=== PATIENT | female | born 1980 | race American Indian/Alaskan Native ===

== ENCOUNTER 2019-04-02 06:16 | Inpatient (IN) | payer MEDICAID ==
--- NOTE | 2019-03-29 15:43 | Anesthesia Consultation ---
Anesthesia Consult and Med Hx Date of service: 04/02/19 - Airway Anesthetic Teeth Evaluation: Good ROM Head & Neck: Adequate Mental/Hyoid Distance: Adequate Mallampati Class: Class III Intubation Access Assessment: Possibly Difficult - Pulmonary Exam CTA: Yes - Cardiac Exam Cardiac Exam: No Murmur - Pre-Operative Health Status ASA Pre-Surgery Classification: ASA3 Proposed Anesthetic Plan: General - Pulmonary Hx Sleep Apnea: Yes (CPAP) - Central Nervous System Hx Psychiatric Problems: No - Other Systems Hx Alcohol Use: Yes (Occas) Hx Cancer: No Hx Obesity: Yes - Additional Comments Anesthesia Medical History Comments: PT Denies HTN, DM states meds ( metformin spironalactone) are for PCOS and she has not taken any mes for a week including Phentermine.
[~2019-04-02 06:16] MED LIST: LACTATED RINGERS 1,000 ML IV SCH
[2019-04-02] MEDS ORDERED: NACL BACTERIOSTATIC INFILTRATI ONE (06:18)
[2019-04-02] MEDS ORDERED: XYLOCAINE 1% 20 mL ONE (06:47)
[2019-04-02] MEDS ORDERED: MARCAINE-EPI 0.5%-1:200,000 INFILTRATI ONE ×2 (06:47→08:29)
--- NOTE | 2019-04-02 07:13 | Anesthesia Day of Surgery ---
Anesthesia Day of Surgery - Day of Surgery Patient Examined: Yes Patient H&P Reviewed: Yes Patient is NPO: Yes
[2019-04-02] MEDS ORDERED: ZOFRAN IV PRN (07:28)
[2019-04-02] MEDS ORDERED: REGLAN IV PRN (07:28)
[2019-04-02] MEDS ORDERED: APRESOLINE IV PRN (07:28)
[2019-04-02] MEDS ORDERED: NORCO PO PRN (07:28)
[2019-04-02] MEDS ORDERED: SUBLIMAZE IV PRN (07:30)
[2019-04-02] MEDS ORDERED: ZOFRAN ONE (07:30)
[2019-04-02] MEDS ORDERED: DIPRIVAN 10 MG/ML IV ONE (07:30)
[2019-04-02] MEDS ORDERED: SUBLIMAZE ONE (07:30)
[2019-04-02] MEDS ORDERED: TRANSDERM-SCOP TD SCH (08:00)
[2019-04-02] MEDS ORDERED: ANCEF/STERILE WATER 2 GM/20 ML 2 GM/20 ML SYRINGE IV NR (08:00)
[2019-04-02] MEDS ORDERED: VERSED IV NR (08:00)
[2019-04-02] MEDS ORDERED: LOVENOX SUB-Q NR (08:00)
[2019-04-02] MEDS ORDERED: LACTATED RINGERS 1,000 ML IV SCH (08:00)
[2019-04-02] MEDS ORDERED: QUELICIN ONE (08:01)
[2019-04-02] MEDS ORDERED: ZEMURON IV ONE (08:01)
[2019-04-02] MEDS ORDERED: XYLOCAINE 1% 20 mL INFILTRATI ONE (08:30)
[2019-04-02] MEDS: TORADOL IV SCH ×3 (08:30→21:28)
[2019-04-02] MEDS ORDERED: FLAGYL 500 MG/100 ML 500 MG/100 ML BAG IV NR (08:30)
[2019-04-02] MEDS ORDERED: NACL 0.9% IR ONE ×2 (08:31)
[2019-04-02] MEDS ORDERED: NEO SYNEPHRINE ONE (08:32)
[2019-04-02] MEDS ORDERED: DECADRON ONE (09:00)
[2019-04-02] MEDS ORDERED: TORADOL ONE (09:01)
[2019-04-02] MEDS ORDERED: PHENYLEPHRINE/NS Syringe 1,000 MCG/10 ML IV ONE (09:01)
[2019-04-02] MEDS ORDERED: BLOXIVERZ ONE (09:01)
[2019-04-02] MEDS ORDERED: ROBINUL ONE (09:01)
[2019-04-02] MEDS ORDERED: DILAUDID ONE (10:04)
[2019-04-02] MEDS: MORPHINE IV PRN (12:26)
[2019-04-02] MEDS: MYLICON PO PRN ×2 (12:26→21:27)
--- NOTE | 2019-04-02 12:32 | Post Anesthesia Evaluation ---
- Post Anesthesia Evaluation Patient Participated: Yes Airway Patent: Yes Stable Respiratory Function: Yes Nausea/Vomiting: No Temp > 96.8F: Yes Pain Manageable: Yes Adequeate Hydration: Yes Anesthesia Complications: No
--- NOTE | 2019-04-02 14:17 | Operative Report ---
SURGEON: Nehemiah Johnson MD TIRE DEBEADER: Kassie Moore MD, Fellow; Jose Daniel Abraham MD, CSA PREOPERATIVE DIAGNOSIS: Morbid obesity. POSTOPERATIVE DIAGNOSES: 1. Small bowel mass (jejunum). 2. Morbid obesity. OPERATION: 1. Laparoscopic biopsy of small bowel jejunal mass. 2. Laparoscopic sleeve gastrectomy. 3. Hiatal hernia repair. 4. Lysis of adhesions. ANESTHESIA: General endotracheal anesthesia. COMPLICATIONS: None. BLEEDING: Minimal. SPECIMENS: 1. Small bowel mass (jejunum). 2. Gastric remnant. INDICATIONS: The patient is a 38-year-old female with a history of morbid obesity. She has undergone preoperative bariatric workup and presents for a planned operation, which was a gastric bypass. The risks, complications and alternatives had been explained to the patient. Informed consent was obtained. DESCRIPTION OF PROCEDURE: The patient was brought to the operating suite, where she was placed in supine position and underwent general endotracheal intubation. She received preoperative antibiotics and DVT prophylaxis. A timeout was called to ensure proper patient, indication, and operation after she was prepped and draped in the usual sterile fashion. Local analgesia was injected around the umbilicus and then a small stab incision was made at the base with insertion of a Veress needle. Insufflation pressures were achieved to 15 mmHg and then the incision was slightly widened and a 5 mm trocar was placed. Under direct visualization, an additional 12 mm port was placed to the right of the midclavicular line and 5 mm ports were placed in the right lateral, subxiphoid, and left upper quadrant. She had omental adhesions around the umbilical port site; therefore, these were taken down with the LigaSure device until the anterior abdominal wall was free. The transverse colon was then lifted and ligament of Treitz was identified. The bowel was run, however, once I got to 10 cm from the ligament of Treitz, I noticed an exophytic glandular appearing small bowel mass coming off the antimesenteric portion of the jejunum. This measured approximately greater than 1 cm. Images were taken of this lesion and after discussion among Dr. Johnson and myself, we decided to take a biopsy of this lesion and send it for frozen section. The lesion was taken off sharply with EndoShears and sent to pathology. The seromuscular surface was imbricated and sutured with 0 Surgidac suture in an interrupted fashion to obtain hemostasis. I then ran the rest of the bowel while we waited for the pathology to return. I carefully inspected the bowel, running the bowel all the way to the cecum. I did not see any other small bowel lesions or any mesenteric lesions. The colon was also examined and the cecum, transverse and sigmoid colon and there were no other abnormalities. The peritoneal surfaces of the liver and spleen and the anterior abdominal wall were free of any lesions. The pathology came preliminarily no atypia, suspicious for neuroendocrine tumor. I spoke with the pathologist and she stated that it appeared benign, but she could not rule out a definitive malignancy and needed further staining. The specimen will be sent for staining. Because of this small bowel proximal lesion, we decided to forego the planned gastric bypass and proceed with a sleeve gastrectomy instead. The patient had already discussed and signed a consent beforehand that if we found anything prohibitive of a gastric bypass, we would proceed with a sleeve. With this, a liver retractor was inserted. The patient was repositioned in steep reverse Trendelenburg. A hiatal dissection was performed revealing a small hiatal hernia. The gastroesophageal fat pad was removed and the angle of His was dissected free. The greater curvature of the stomach was from the gastrocolic ligament using a ligasure device. A 40-Colombian bougie was inserted by Anesthesia and a sleeve gastrectomy was performed utilizing several staple loads. The pressures were decreased and the staple line cauterized after each fire load. An anterior cruroplasty was then done with 0 Surgidac suture to reapproximate the hiatus and hemostasis was ensured. The fascia of the 12 mm port to the right of the midclavicular line was dilated with a blunt Norma and then the stomach was removed from this port site. The fascia was closed with a #1 PDS in a [id number] fashion. Additional local was injected to all the wound sites and then the wounds were closed with 4-0 Monocryl. The patient tolerated the procedure with no immediate complications. She was extubated and left the operating room in stable condition. Counts were correct. FINDINGS: 1. Greater than 1 cm small bowel exophytic lesion coming off the jejunum 10 cm from the ligament of Treitz located in the antimesenteric portion of the small bowel. Preliminary results were suspicious for neuroendocrine tumor with no atypia, but further studies will have to be done. 2. Sleeve gastrectomy performed. She had a small hiatal hernia. JOB# [id number] MORA/CHRIS WILEY
[2019-04-03] MEDS: MORPHINE IV PRN (00:01)
[2019-04-03 05:37] LABS: Basophils # (Auto) 0.1 K/mm3 (0.0-0.1); Basophils % (Auto) 0.4 % (0.0-1.8); Hematocrit 38.6 % (30.3-42.9); Lymphocytes # (Auto) 1.5 K/mm3 (1.2-5.4); Lymphocytes % (Auto) 9.8 % (13.4-35.0); Mean Corpuscular HGB Conc 34 % (30-34); Mean Corpuscular Volume 90 fl (79-97); Monocytes # (Auto) 0.8 K/mm3 (0.0-0.8); Monocytes % (Auto) 5.5 % (0.0-7.3); Platelet Count 338 K/mm3 (140-440); Red Blood Count 4.29 M/mm3 (3.65-5.03); Red Cell Distribution Width 14.7 % (13.2-15.2)
[2019-04-03 05:52] LABS: Alanine Aminotransferase 35 units/L (7-56); Albumin 3.5 g/dL (3.9-5); BUN/Creatinine Ratio 15; Blood Urea Nitrogen 9 mg/dL (7-17); Calcium 9.3 mg/dL (8.4-10.2); Hemolysis Index 3
[2019-04-03] MEDS: TORADOL IV SCH ×2 (06:06→08:25)
[2019-04-03 06:33] VITALS: BP 124/74
--- NOTE | 2019-04-03 06:55 | Discharge Summary ---
Providers - Providers Date of Admission: 04/02/19 06:16 Date of discharge: 04/03/19 Attending physician: EVANS JOHNSON Hospitalization Reason for admission: postop Condition: Good Procedures: 04/02/19: Laparoscopic biopsy small bowel mass, sleeve gastrectomy, YFN Hospital course: 38F admitted after her operation for routine postop care. The results of her operation and findings were explained to the patient and the images taken during laparoscopy were shown to the patient. All her questions were answered. She had no major issues overnight, ambulated, and tolerated a CLD. See op note for further details of intraop findings. She was dc home POD1. Disposition: DC-01 TO HOME OR SELFCARE Core Measure Documentation - Palliative Care Palliative Care/ Comfort Measures: Not Applicable - Core Measures Any of the following diagnoses?: none - VTE Discharge Requirements Deep Vein Thrombosis/Pulmonary Embolism Present on Admission: No - Acute OR Discharge Requirements Aspirin at discharge: No Reason for no aspirin on DC: Surgical contraindication - Heart Failure Discharge Requirements CARLA/ARB for LVSD if EF <40%: Not Applicable - Stroke Discharge Requirements Statin for LDL = or >70 mg/dl on DC: Not Applicable Exam - Physical Exam Narrative exam: Gen: AAO, NAD Heart: RRR Lungs: Clear Abd: MO, soft, NT, ND. Bandages c/d/i. Ext: No LE edema - Constitutional Vitals: Temp Pulse Resp BP Pulse Ox 98.8 F 95 H 17 124/74 94 04/03/19 06:31 04/03/19 06:31 04/03/19 06:31 04/03/19 06:31 04/03/19 06:31 Plan Diet: clear liquids Wound: keep clean and dry Special Instructions: no heavy lifting Additional Instructions: Misael Johnson as scheduled Follow up with: IDALIA DOTSON [Other] - 7 Days
[2019-04-03] MEDS ORDERED: GLUCOPHAGE PO SCH (08:00)
[2019-04-03] MEDS: MYLICON PO PRN (08:45)
[2019-04-03] MEDS: LOVENOX SUB-Q SCH ×2 (08:48→12:36)
[2019-04-03] MEDS ORDERED: ALDACTONE PO SCH (10:00)
== END 2019-04-03 12:20 | disposition home or self-care (01) | DRG 621 ==
LOC: 3A 06:16 → 3B-SURG 10:12
PROVIDERS: ADMIT Specialist; ATTEND Specialist
PROC: 0DB64Z3 Excision of Stomach, Percutaneous Endoscopic Approach, Vertical (ICD-10-PCS; principal; 2019-04-02)
PROC: 0BQT4ZZ Repair Diaphragm, Percutaneous Endoscopic Approach (ICD-10-PCS; 2019-04-02)
PROC: 0DBA4ZX Excision of Jejunum, Percutaneous Endoscopic Approach, Diagnostic (ICD-10-PCS; 2019-04-02)
DX: E66.01 Morbid (severe) obesity due to excess calories (principal); K63.9 Disease of intestine, unspecified; G47.33 Obstructive sleep apnea (adult) (pediatric); K21.9 Gastro-esophageal reflux disease without esophagitis; K44.9 Diaphragmatic hernia without obstruction or gangrene; Z72.89 Other problems related to lifestyle; Z90.49 Acquired absence of other specified parts of digestive tract; Z91.010 Allergy to peanuts; Z68.43 Body mass index [BMI] 50.0-59.9, adult
CPT/HCPCS: 36415; 80053; 81025; 82962; 85025; 88305; 88307; 88331; G0378; A4217; J0330; J0690; J1100; J1170; J1650; J1885; J2250; J2270; J2370; J2405; J2704; J2710; J3010; J7120